=== PATIENT | male | born 1980 | race American Indian/Alaskan Native ===

== ENCOUNTER 2017-01-13 08:24 | Emergency (ER) | payer OTHER ==
[2017-01-13 08:36] VITALS: BP 120/87
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
[2017-01-13] MEDS ORDERED: MOTRIN PO ONE (10:46)
== END 2017-01-13 11:29 | disposition home or self-care (01) ==
LOC: ED 08:24
DX: S13.4XXA Sprain of ligaments of cervical spine, initial encounter (principal); V49.49XA Driver injured in collision with other motor vehicles in traffic accident, initial encounter; Y92.488 Other paved roadways as the place of occurrence of the external cause; Y93.89 Activity, other specified; Y99.9 Unspecified external cause status
CPT/HCPCS: 99282